=== PATIENT | female | born 1970 | race Caucasian/White ===

== ENCOUNTER 2017-06-09 19:26 | Emergency (ER) | payer OTHER ==
[~2017-06-09] VITALS: Ht 170.2 cm; Wt 62.8 kg
[~2017-06-09 19:26] MED LIST: ACTONEL150 MG PO; ALBUMIN; ALDACTONE100 MG PO; Aldactone PO; CHRONULAC,CEPHU30 ML PO; Chronulac,Cephulac,E PO; FLORINEF ACETA0.1 MG PO; FOLVITE1 M1 PO; FOLVITE1 MG PO; FUROSEMIDE20 MG PO; HYDROMORPHONE HC2 MG PO; INDERAL10 MG PO; K-DUR20 MEQ PO; LASIX10 MG PO; LEVETIRACETAM500 MG PO; LEVOTHYROXINE112 MCG PO; LEXAPRO20 MG PO; NAPROSYN SUS25 MG/ML PO; OMEPRAZOLE40 M1 PO; OXYCODONE H5 MG/5 ML PO; OXYCODONE HCL5 MG PO; OXYCODONE10 MG PO; PRILOSEC40 MG PO; PROPRANOLOL HCL10 MG PO; SPIRONOLACTONE25 MG PO; THERAGRAN1 TABLET PO; THIAMINE HCL100 MG PO; THIAMINE,VITAM100 MG PO; XIFAXAN200 MG PO; oxyCODONE PO
[2017-06-09 21:27] LABS: HEMATOCRIT 38.8 % (36.0-46.0); MCH 28.2 PG (29.0-34.0); MCV 82.9 FL (83-99); PLATELET COUNT 299 K/uL (156-360); RBC DIS.WIDTH-CV 12.6 % (11.8-14.6); RBC DIS.WIDTH-SD 38.3 % (39-53); RED BLOOD COUNT 4.68 M/uL (3.80-5.20); WHITE BLOOD COUNT 9.3 K/uL (4.1-10.2)
[2017-06-09 21:36] LABS: CHLORIDE 112 mEq/L (99-109); POTASSIUM 4.3 mEq/L (3.7-5.4); SODIUM 139 mEq/L (136-147)
[2017-06-09 21:37] LABS: GLUCOSE 89 mg/dL (70-99)
[2017-06-09 21:39] LABS: ANION GAP 9 MEQ/L (2-14)
[2017-06-09 21:41] LABS: GFR ESTIMATE (CALCULATED) > 59 mL/min/
[2017-06-09 21:42] LABS: UREA NITROGEN (BUN) 8 mg/dL (9-23)
[2017-06-10 00:39] LABS: PROTHROMBIN TIME 11.2 SEC (10.2-12.9)
[2017-06-10 00:48] LABS: TOTAL BILIRUBIN 0.2 mg/dL (0.0-1.0)
[2017-06-10 00:49] LABS: ALKALINE PHOSPHATASE 135 IU/L (3-129)
[2017-06-10 00:52] LABS: DIRECT BILIRUBIN 0.1 mg/dL (0.0-0.3)
[2017-06-10] MEDS ORDERED: KEFLEX500 MG PO (02:15)
[2017-06-10] MEDS ORDERED: TRAMADOL HCL50 MG PO (03:48)
[2017-06-10 03:55] VITALS: BP 109/84
== END 2017-06-10 03:57 | disposition home or self-care (01) ==
LOC: EME 19:26
PROVIDERS: Emergency Medicine
DX: T82.514A Breakdown (mechanical) of infusion catheter, initial encounter (principal); Y83.1 Surgical operation with implant of artificial internal device as the cause of abnormal reaction of the patient, or of later complication, without mention of misadventure at the time of the procedure; R50.9 Fever, unspecified; K74.60 Unspecified cirrhosis of liver; K21.9 Gastro-esophageal reflux disease without esophagitis; E03.9 Hypothyroidism, unspecified; G40.909 Epilepsy, unspecified, not intractable, without status epilepticus; F32.9 Major depressive disorder, single episode, unspecified; F90.9 Attention-deficit hyperactivity disorder, unspecified type; Z86.14 Personal history of Methicillin resistant Staphylococcus aureus infection; F17.210 Nicotine dependence, cigarettes, uncomplicated
CPT/HCPCS: 71020; 80048; 80076; 83605; 85027; 85610; 87040; 99281; 99285; J0696; J2270; J7030; J7050